=== PATIENT | male | born 1970 | race Caucasian/White ===

== ENCOUNTER → 2017-12-28 | Outpatient (CLI) | payer OTHER ==
--- NOTE | 2017-12-28 17:17 | PCVCIMAG ---
APPROVED REPORT Study performed: 12/28/2017 09:14:21 EXAM: Comprehensive 2D, Doppler, and color-flow Echocardiogram Patient Location: Echo lab Room #: 2Status: routine BSA: 2.45 HR: 54 bpmBP: 116/88 mmHg Rhythm: NSR Other Information Study Quality: Good Indications Palpitations Tachycardia 2D Dimensions IVSd: 10.54 (7-11mm)LVOT Diam: 27.88 (18-24mm) LVDd: 57.84 mm PWd: 10.96 (7-11mm)Ascending Ao: 35.37 (22-36mm) LVDs: 35.63 (25-40mm) Left Atrium: 39.89 (27-40mm) Aortic Root: 35.54 mm LV Single Plane 4CH: 55.22 % LV Single Plane 2CH: 61.97 % Biplane EF: 58.0 % Volumes Left Atrial Volume (Systole) Single Plane 4CH: 70.13 mLSingle Plane 2CH: 68.16 mL Biplane LA Volume: 73.00 mLLA ESV Index: 30.00 mL/m2 Aortic Valve AoV Peak Eugene.: 1.16 m/s AO Peak Gr.: 5.37 mmHgLVOT Max P.06 mmHg LVOT Max V: 0.72 m/s SIMONE Vmax: 3.78 cm2 Mitral Valve E/A Ratio: 1.6 MV Decel. Time: 253.12 ms MV E Max Eugene.: 0.53 m/s MV A Eugene.: 0.33 m/s IVRT: 79.58 ms TDI E/Lateral E': 6.63E/Medial E': 6.63 Medial E' Eugene.: 0.08 m/s Lateral E' Eugene.: 0.08 m/s Pulmonary Valve PV Peak Eugene.: 0.88 m/sPV Peak Gr.: 3.09 mmHg Pulmonary Vein P Vein S: 0.24 m/sP Vein A: 0.27 m/s P Vein D: 0.25 m/sP Vein A Dur.: 110.7 msec P Vein S/D Ratio: 0.96 Tricuspid Valve TR Peak Eugene.: 2.30 m/s TR Peak Gr.: 21.18 mmHg TV Vmax: 0.67 m/sPA Pressure: 28.00 mmHg Left Ventricle Left ventricle is borderline dilated. There is normal LV segmental wall motion. There is normal left ventricular wall thickness. Left ventricular systolic function is normal. The left ventricular ejection fraction is within the normal range. LVEF is 55-60%. The left ventricular diastolic function is normal. Right Ventricle The right ventricle is normal size. The right ventricular systolic function is normal. Atria The left atrium size is normal. The right atrium size is normal. Aortic Valve Aortic valve is trileaflet. No aortic regurgitation is present. There is no aortic valvular stenosis. Mitral Valve The mitral valve is normal in structure. There is no mitral valve regurgitation noted. No evidence of mitral valve stenosis. Tricuspid Valve The tricuspid valve is normal in structure. Trace to mild tricuspid regurgitation with a PA pressure of 28 mmHg. Pulmonic Valve The pulmonary valve is normal in structure. Trace to mild pulmonic regurgitation. Great Vessels The aortic root is normal in size. The ascending aorta is normal in size. Aortic arch is normal in caliber. IVC is normal in size and collapses >50% with inspiration. Pericardium There is no pericardial effusion. There is no pleural effusion. <Conclusion> Left ventricular systolic function is normal. There is normal LV segmental wall motion. LVEF is 55-60%. Normal diastolic function Aortic valve is trileaflet. No aortic regurgitation or stenosis. The mitral valve is normal in structure. No mitral valve regurgitation Trace to mild tricuspid regurgitation with a pulmonary artery pressure of 28 mmHg. There is no pericardial effusion.
--- NOTE | 2017-12-28 17:19 | PCVCIMAG ---
APPROVED REPORT Patient Location: Echo lab TREADMILL STRESS TEST Room #: 2 Stress Nurse: Stella Schmidt RN INDICATIONS: Palpitations, Tachycardia, Lightheadedness The patient exercised according to the GABRIELE protocol for 13:47 mins; achieving a work level of 17.5 METS. The resting heart rate of 69 bpm barry to a maximum heart rate of 173 bpm. This value represent 99% of the maximal, age-predicted heart rate. The resting blood pressure of 116/88 mmHg, barry to a maximum blood pressure of 156/88 mmHg. The exercise test was stopped due to fatigue. Resting EKG: Normal sinus rhythm normal tracing Stress EKG: No diagnostic ischemic electrocardiographic changes. Occasional, isolated atrial and ventricular premature complexes. No sustained dysrhythmias. Conclusion 1. Maximal treadmill exercise study negative for exercise-induced myocardial ischemia. 2. No subjective signs of ischemia such as chest pain or anginal-like symptoms. No diagnostic ischemic or echocardiographic changes. No significant dysrhythmias. 3. The study was associated with excellent exercise capacity processes 17.5METS. Low Salas exercise score
== END | disposition home or self-care (01) ==
LOC: PCVCIMAG 09:26
PROVIDERS: ATTEND Internal Medicine
DX: R00.2 Palpitations (principal); R00.0 Tachycardia, unspecified; R00.1 Bradycardia, unspecified; R93.1 Abnormal findings on diagnostic imaging of heart and coronary circulation; E78.5 Hyperlipidemia, unspecified; R42 Dizziness and giddiness
CPT/HCPCS: 93017; 93306